=== PATIENT | female | born 1990 | race Caucasian/White ===

== ENCOUNTER 2022-09-29 06:21 | Inpatient (IN) | payer BC ==
[2022-09-29] VITALS (42 sets, daily range): BP systolic 11–134; BP diastolic 39–80; PULSE 68–126; TEMP 97.4–98.2
[~2022-09-29] VITALS: Ht 154.9 cm; Wt 86.4 kg
--- NOTE | 2022-09-29 06:30 | NUR ---
0630- PATIENT AMBULATORY TO UNIT WITH SPOUSE, YESICA. PATIENT REPORTS CONTRACTIONS 6 MINUTES APART AND LEAKING OF FLUID STARTING AT 0445. PATIENT DENIES LEAKING OF FLUID AND REPORTS GOOD MOVEMENT. PATIENT ORIENTED TO LABOR ROOM 4 AND ASSISTED INTO A GOWN. EFM AND TOCO PLACED AND TRACING WELL.
[2022-09-29 08:02] LABS: HEMOGLOBIN 11.8 g/dl (12.5-16.0); MEAN CELL VOLUME 87 fl (80.0-100.0); MEAN CORPUSCULAR HEMOGLOBIN 29 pg (27-31); MEAN CORPUSCULAR HGB CONC 33 g/dl (33.0-37.0); MEAN PLATELET VOLUME 9.9 fl (7.4-10.4); PLATELET COUNT 140 K/mm3 (130-400); RED BLOOD COUNT 4.06 M/mm3 (4.10-5.30); REDCELL DISTRIBUTION WIDTH-CV 14.2 % (11.5-14.5)
[2022-09-29 08:04] LABS: HEMATOCRIT 35.4 % (37.0-47.0)
--- NOTE | 2022-09-29 08:25 | NUR ---
0820- IN PATIENTS ROOM DISCUSSING PLAN OF CARE. 0816- AT BEDSIDE TO SONOGRAM PATIENT.
[2022-09-29 08:36] LABS: BAND 4 % (0-10); EOSINOPHIL 1 % (0-4); LYMPHOCYTE 12 % (20.0-51.0); METAMYELOCYTE 1 % (0-0); MYELOCYTE 1 % (0-0); NEUTROPHILS 78 % (42.0-75.2); PLATELET ESTIMATE NORMAL (NORMAL)
[2022-09-29] MEDS ORDERED: PRENATAL (09:05)
[2022-09-29] MEDS ORDERED: PRILOSEC10 MG PO (09:06)
[2022-09-29] MEDS ORDERED: DULCOLAX STOOL100 MG PO (09:06)
[2022-09-29] MEDS ORDERED: ZOVIRAX400 MG PO (09:08)
--- NOTE | 2022-09-29 10:16 | NUR ---
AT BEDSIDE AT THIS TIME. THIS RN INFORMS SVE /-2 AT THIS TIME. REASSURES PATIENT THAT PROGRESSION IS BEING MADE AND PAIN MANAGEMENT CAN BE DISCUSSED AT ANY TIME, PITOCIN ADMINISTRATION ALSO DISCUSSED WELL PROGRESSION THAT IS EXPECTED. PATIENT VERBALIZES UNDERSTANDING AND AGREES WITH PLAN TO CONTINUE WITHOUT PITOCIN.
--- NOTE | 2022-09-29 16:25 | NUR ---
PATIENT CALLED OUT AND REPORTED NOT FEELING RIGHT AND FEELING WEIRD. THIS RN AT BEDSIDE PATIENT REPORTS SWOLLEN FEET AND SHAKINESS, PATINET REASSURED THAT SHAKES MAY BE RELATED TO BEING IN LABOR AND SWELLING MAY BE DUE TO HAVING 3 BAGS OF FLUIDS. THIS RN ENCOURAGES PATIENT TO EXPRESS ANY FURTHER SYMPTOMS SIMILAR OR WORSE.
--- NOTE | 2022-09-29 16:35 | NUR ---
AT BEDSIDE AT THIS TIME TO PERFORM SVE. SVE /. STARTING PITOCIN DISCUSSED WITH PATIENT AND PATIENT AWARE OF RISK FOR C/S. INFORMS THIS RN THAT HE WILL BE BACK TO RECHECK AROUND 1829 OR 1899 AND WILL DISCUSS FURTHER OPTIONS WITH PATIENT AT THAT TIME. THIS RN BEGINS PITOCIN ADMINISTRATION AT 2mU/MIN AT 1645
--- NOTE | 2022-09-29 17:25 | NUR ---
THIS RN AT BEDSIDE TO PERFORM SIDE LYING HIP RELEASE WITH PATINET. PATINET LL AND SIDE LYING HIP RELEASE DONE. PATIENT ROLLED TO OTHER SIDE AND SIDE LYING HIP RELEASE ON RIGHT SIDE. FHR TRACING RECURRENT VARIABLE DECELERATIONS. THIS RN REPOSITIONING PATIENT TO WR, NO IMPROVEMENT IN TRACING, WL ATTEMPTED WITH IMPROVEMENT OF FHR TRACING. PITOCIN TURNED BACK TO 4 AT 1734. THIS RN CONTINUES TO ASSESS SITUATION.
--- NOTE | 2022-09-29 18:00 | NUR ---
IN PATIENTS ROOM TO ASSESS PROGRESS. SVE 6, DISCUSSES RISKS OF CONTINUING TO LABOR WITH PATIENT. PATIENT AGREES THAT IT IS BETTER TO DO A THAN RISK BABY'S HEALTH. PROCEDURE EXPLAINED TO PATIENT PER AND THIS RN REMAINS AT BEDSIDE TO PREPARE PATIENT FOR PROCEDURE.
--- NOTE | 2022-09-29 18:20 | NUR ---
This nurse received report from Hien Millard RN. Pt is having a for failure to progress. This nurse resumed care from Hien Millard RN to prepare for transport to the OR. 1829: Pt to OR room. 1851: section delivery of viable baby boy at 1851. Cord clamped and cut by Dr. Vidal. Baby care assumed by Olivia Rodriguez RN. Manual delivery of intact placenta at 1853. Doctor begins repair of section cut. 1949: Pt to PACU, transported via bed. VS and pt monitored. Pt transported out of PACU to Room 209 at 2044 via hospital bed steered by this nurse, accompanied by pt spouse. 2039: Pt transported to Room 209 via hospital bed, accompanied by this nurse and pt spouse. Pt oriented to room, educated on whiteboard, educated on packet, abnormal bleeding, and post-casearean section care. Questions, concerns, and needs encouraged. Pt verbalized understanding and care of POC and education with "no" questions, cocnerns, or needs. 2044: Recovery Care begins.
[2022-09-30 01:45] VITALS: BP 100/60; BP 110/70; PULSE 76; PULSE 78; TEMP 97.8
[2022-09-30 06:00] VITALS: BP 87/63; PULSE 92; TEMP 97.7
[2022-09-30 06:31] LABS: HEMATOCRIT 26.9 % (37.0-47.0); HEMOGLOBIN 9.1 g/dl (12.5-16.0)
[2022-09-30 10:00] VITALS: BP 99/54; PULSE 97; TEMP 98
[2022-09-30] MEDS ORDERED: IBU600 MG PO (10:09)
[2022-09-30] MEDS ORDERED: ROXICODONE 55 MG/TAB PO (10:10)
[2022-09-30 14:00] VITALS: BP 87/57; PULSE 103; TEMP 98.1
[2022-09-30 17:45] VITALS: BP 90/55; PULSE 109; TEMP 98.9
--- NOTE | 2022-09-30 18:20 | NUR ---
Report given from Hien Millard RN. Pt stated that Dr. Jones endorsed pt getting a shower. Pt would still like medications administered as scheduled and on the clock for PRN medications. Care relinquished from Hien Millard RN.
--- NOTE | 2022-09-30 18:50 | NUR ---
This nurse at pt bedside for introductions and POC discussion. Pt and pt spouse informed of relocating pt baby to the nursery for 24 hour labs, VS, and assessment obtainment. Questions, concerns, and needs encouraged. Pt verbalized understanding and agreement of POC with "no" questions, concerns, or needs.
--- NOTE | 2022-09-30 19:52 | NUR ---
Pt informed of babys return. Pt expressed concern of wanting to shower soon but wanted to get pain medication prior to getting up. Medication administered and INT discontinued at 1945. This nurse educated pt on showering post section.
[2022-09-30 20:30] VITALS: BP 89/55; PULSE 95; TEMP 97.7
--- NOTE | 2022-09-30 20:50 | NUR ---
Pt ambulating to bed from the shower. This nurse assessed pt, VS, and administered medications.
--- NOTE | 2022-09-30 21:03 | NUR ---
Pt is attempting to breastfeed during this nurse hourly round at 2100.
--- NOTE | 2022-09-30 22:03 | NUR ---
Pt in bed, visiting with family members at bedside during this nurse hourly rounding at 2200. Medication administered.
--- NOTE | 2022-09-30 23:42 | NUR ---
Pt visiting with family member at pt bedside during this nurse hourly round.
--- NOTE | 2022-10-01 01:00 | NUR ---
Pt asleep during this nurse hourly rounding at 0100.
--- NOTE | 2022-10-01 02:04 | NUR ---
Pt asleep and roused for medication administration.
--- NOTE | 2022-10-01 03:40 | NUR ---
Pt awake and during this nurse hourly rounding. Medication administered.
--- NOTE | 2022-10-01 05:24 | NUR ---
Pt awake during this nurse hourly round, stated "I thought he wanted to eat but he just wanted to snuggled the little turd."
[2022-10-01 07:30] VITALS: BP 89/50; PULSE 93; TEMP 98.4
== END 2022-10-01 13:05 | disposition home or self-care (01) | DRG 787 ==
LOC: LDRO 06:21 → LDR 07:10 → OB 20:40
PROVIDERS: ADMIT Obstetrics & Gynecology
PROC: 10D00Z1 Extraction of Products of Conception, Low, Open Approach (ICD-10-PCS; principal; 2022-09-29)
DX: O48.0 Post-term pregnancy (principal); O72.1 Other immediate postpartum hemorrhage; O98.32 Other infections with a predominantly sexual mode of transmission complicating childbirth; O76 Abnormality in fetal heart rate and rhythm complicating labor and delivery; O62.0 Primary inadequate contractions; O90.81 Anemia of the puerperium; D64.9 Anemia, unspecified; O99.344 Other mental disorders complicating childbirth; F41.9 Anxiety disorder, unspecified; A60.09 Herpesviral infection of other urogenital tract; Z37.0 Single live birth; Z3A.40 40 weeks gestation of pregnancy
CPT/HCPCS: J0456; J0690; J1100; J1885; J2270; J2370; J2401; J2405; J2590; J3010; J7050; J7120

== ENCOUNTER → 2022-10-10 | Outpatient (CLI) | payer BC ==
[~2022-10-10] MED LIST: DULCOLAX STOOL100 MG PO; IBU600 MG PO; PRENATAL; PRILOSEC10 MG PO; ROXICODONE 55 MG/TAB PO; ZOVIRAX400 MG PO
--- NOTE | 2022-10-10 14:38 | NUR ---
Pt, Olive Adrian, presents to walk-in clinic with 11 day old baby boy, Rodrigo Adrian, for a weight check. She is accompanied by her spouse, Tobin. Rodrigo was born on [birth year] and weighed 7# 10.8oz (3481 gms). He was seen by this LC on 10/02/22 and weighed 6# 12.9oz (3087 gms) which was an 11% weight loss. Pt follow feeding plan until milk supply increased, then she was able to breastfeed with supplementation. Today Rodrigo weighs 7# 13.3oz (3554 gms). Pt pumps prn for comfort, and an occassional bottle for convenience. POC: Continue BF prn. F/U: as scheduled with physicans and prn at walk-in BF clinic. Questions invited and answered.
== END ==
LOC: LAC 13:17
DX: Z39.1 Encounter for care and examination of lactating mother (principal); Z71.89 Other specified counseling